=== PATIENT | male | born 1990 | race Caucasian/White ===

== ENCOUNTER 2016-11-29 15:25 | Inpatient (IN) | payer SELFPAY ==
[2016-11-29] MEDS ORDERED: Sodium Chloride 0.9% 1,000 ML PRIMARY IV ONE ×4 (16:01→18:56)
[2016-11-29] MEDS ORDERED: ONDANSETRON 4 MG/2 ML VIAL IVP ONE (16:01)
[2016-11-29] MEDS ORDERED: NORMAL SALINE 10 ML SYRINGE FLUSH IVP PRN ×2 (16:01→18:56)
[2016-11-29 16:20] LABS: BASOPHILS # (AUTO) 0.02 10*3/UL; BASOPHILS % (AUTO) 0.1 % (0-1); EOSINOPHILS % (AUTO) 0.4 % (0-8); HEMATOCRIT 52.1 % (42.0-52.0); HEMOGLOBIN 18.9 g/dL (14.0-18.0); IMM GRAN % (AUTO) 0.4 % (0-5); IMM GRAN# (AUTO) 0.06 10*3/UL; LYMPHOCYTES # (AUTO) 1.33 10*3/uL; MEAN CORPUSCULAR HGB CONC 36.3 g/dL (33-37); MEAN PLATELET VOLUME 10.1 FL (7.4-12.2); MONOCYTES # (AUTO) 0.65 10*3/UL (0.3-0.8); MONOCYTES % (AUTO) 3.9 % (5-15); NEUTROPHILS # (AUTO) 14.46 10*3/UL; NEUTROPHILS % (AUTO) 87.2 % (50-80); PLATELET MORPHOLOGY COMMENT NORMAL MORPHOLOGY (NORM); RDW COEFFICIENT OF VARIATION 13.4 % (11.5-14.5); WHITE BLOOD COUNT 16.59 10^3/uL (4.8-10.8)
[2016-11-29 16:29] LABS: AMYLASE 52 U/L (30-110); ASPARTATE AMINO TRANSFERASE 14 IU/L (21-57); BILIRUBIN,TOTAL 1.1 mg/dL (0.3-1.2); BLOOD UREA NITROGEN 10 mg/dL (7-22); BUN/CREATININE RATIO 11.11 (6-20); CALCIUM 10.5 mg/dL (8.7-10.7); CHLORIDE 107 meq/L (98-112); CREATININE 0.9 mg/dL (0.70-1.50); EST GLOMERULAR FILTRATION > 60 (>60 ml/min/1.73m(2)); GLUCOSE 89 mg/dL (78-110); POTASSIUM 3.9 meq/L (3.8-5.2); SODIUM 144 meq/L (135-145); TOTAL PROTEIN 7.8 g/dL (6.1-8.0)
[2016-11-29 16:43] LABS: BILIRUBIN,URINE NEGATIVE (NEG); CLARITY,URINE CLEAR (CLEAR); GLUCOSE, URINE (UA) NEGATIVE (NEG); LEUKOCYTE ESTERASE ,URINE NEGATIVE (NEG); NITRATE,URINE NEGATIVE (NEG); OCCULT BLOOD,URINE NEGATIVE (NEG); PH,URINE >=9.0 (5.0-8.5); PROTEIN,URINE NEGATIVE (NEG); UROBILINOGEN,URINE 0.2 EU/dL (0.2)
[2016-11-29 16:50] LABS: URINE SAMPLE TYPE CLEAN CATCH URINE
[2016-11-29] MEDS ORDERED: HYDROmorphone 2 MG/1 ML IVP ONE (17:08)
[2016-11-29] MEDS: ONDANSETRON 4 MG/2 ML VIAL IVP ONE ×2 (17:16→18:48)
--- NOTE | 2016-11-29 18:11 | DI ---
CT ABDOMEN SCAN WITH IV CONTRAST, 11/29/2016 4:02 PM : Clinical History: Abdominal pain. Previous Exam: None at this facility. Scans are performed from the lower lung bases through the liver and kidneys with IV contrast. 95 ml o f Isovue 300 was injected IV. The lung bases are clear. The liver is normal. The gallbladder is grossly normal. There is no abnorma lity of the spleen, pancreas, and adrenal glands. Both kidneys are normal in size, shape, position an d contour. There is no hydronephrosis or hydroureter. No renal or ureteral calculi are present. There are no abnormal retrocrural or periaortic nodes. No ascites is present. READING: Normal CT abdomen scan. CT PELVIS SCAN WITH IV CONTRAST, 11/29/2016 4:02 PM: Clinical History: See above. Previous Exam: None at this facility. Scans are performed from just superior to the umbilicus to the symphysis pubis with IV contrast. This is the same bolus of contrast used for the CT scans of the abdomen. Scans through the lower abdomen and pelvis show no masses or abnormal fluid collections. There is no adenopathy. The appendix is normal. The small bowel, terminal ileum, and ileocecal valve are normal. The colon is also normal. There are no hernias. READING: Normal CT scan of the pelvis.
[2016-11-29] MEDS ORDERED: ACETAMINOPHEN 325 MG TABLET PO PRN (18:56)
[2016-11-29] MEDS ORDERED: HYDROmorphone 2 MG/1 ML IVP PRN (18:56)
[2016-11-29] MEDS ORDERED: Prochlorperazine Edisylate Inj 10mg/2ml vial IVP ONE (19:10)
[2016-11-29] MEDS ORDERED: Influenza 16-17 Vaccine(4yrs+) 45 MCG/0.5 ML SYRINGE IM ONE (19:18)
[2016-11-29] MEDS ORDERED: Prochlorperazine Edisylate Inj 10mg/2ml vial ONE (19:31)
--- NOTE | 2016-11-29 19:58 | PDOC ---
History and Physical - History of Present Illness Date and Time of Service: 11/29/2016, Chief Complaint: Diarrhea and nausea and vomiting History of Present Illness: This very pleasant 26-year-old male with a prior history of some kidney problems that resolved in [place] that required "partial dialysis", and no other medical problems. He comes in stating that he had acute onset of nausea, vomiting, and diarrhea today. He was not able to hold anything down and even water caused him to throw up. He came in for evaluation and was found to have C. difficile colitis. The CT scan of the abdomen and pelvis was negative. The patient could not tolerate anything by mouth intake-palmer and continued to vomit even when I saw him on the floor. He was not a candidate to go home with his nausea and vomiting for outpatient therapy. The patient is never had anything like this happen before. He states that he was on antibiotics in August or so for a tooth abscess. He got the antibiotics here in the emergency room. Zofran helped initially but now the patient is vomiting even through that. Dilaudid did help with pain although he did like to avoid that. Past Medical History Medical History: 1. Prior history of kidney failure, resolved. This was attributed to higher than usual intake of Coca-[employer]a, and the patient admits to taking as much is a 24 pack per day. Surgical History: None Family History: Reviewed an Not Pertinent Pertinent Family History: Patient denies any major medical problems in the family other than "getting old". Past Social History: Smokes, drinks only occasionally once every couple months and socially at that. . 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 Has 2 children that are described as healthy. Tobacco Use: Current Every Day Smoker Substance Use Type: None Alcohol Use: Occasionally Medication / Allergies Home Medications: Home Medications Medication Instructions Recorded Confirmed Type NK [No Home Medications Reported] 11/29/16 11/29/16 History Allergies/Adverse Reactions: Allergies Allergy/AdvReac Type Severity Reaction Status Date / Time OPIOIDS AdvReac VOMITING Uncoded 11/29/16 19:14 Review of Systems - Review of Systems All Systems: Reviewed & No Additional Complaints Except as Stated (I did a 12 point review systems and other than that discussed in history present illness the entire review systems was negative. There are exceptions noted below.) - Constitutional Constitutional: REPORTS: Fever/Chills - Ear/Nose Exam Ear/Nose Exam: REPORTS: Other (Abscessed tooth in August, still has tooth, not cold, did not have resources to visit dentist.) Exam - Vitals Vital Signs: Vital Signs Height 5 ft 10 in Weight 182 lb 12.8 oz Vital Signs - Last Taken Temperature 97.6 F 11/29/16 15:25 Pulse Rate 83 11/29/16 15:25 Respiratory Rate 19 11/29/16 15:25 Blood Pressure 129/90 11/29/16 15:25 Pulse Ox 100 11/29/16 15:25 - General General Appearance: POSITIVE: No Acute Distress, Cooperative Additional General Exam Details: Ill but nontoxic. Vomiting on exam. - Head Head Exam: POSITIVE: Normal Inspection, Normocephalic, Atraumatic - Eye Eye Exam: POSITIVE: No Scleral Icterus - ENT ENT Exam: POSITIVE: Mucous Membranes Dry - Neck Neck Exam: POSITIVE: Normal Inspection - Respiratory Respiratory Exam: POSITIVE: Clear to Auscultation - Bilaterally, Breathing Non Labored, Normal to Percussion and Palpation - Cardiovascular Cardiovascular Exam: POSITIVE: RRR, No Murmur, No Clicks, No Gallops, No Rubs, No JVD - GI/Abdominal GI/Abdominal Exam: POSITIVE: Normal Bowel Sounds, Non Distended, Soft Additional GI/Abdominal Exam Details: Tender to palpation. - Rectal Rectal Exam: POSITIVE: Deferred - External Exam: POSITIVE: Deferred Exam: POSITIVE: Deferred - Extremities Extremities Exam: POSITIVE: No Clubbing Present, No Edema Present, No Cyanosis Present - Back Back Exam: POSITIVE: No CVA Tenderness - Neurological Neurological Exam: POSITIVE: Alert, Oriented x 3, No Facial Droop, Speech Intact / Clear, Moves All Extremities Equally - Psychiatric Psychiatric Exam: POSITIVE: Normal Affect, Normal Mood Results - Labs CBC and BMP: 11/29/16 16:17 11/29/16 16:17 Labs - Last 24 Hours: Laboratory Results 11/29/16 11/29/16 Range/Units 16:17 16:39 WBC 16.59 H (4.8-10.8) 10^3/uL RBC 6.30 H (4.70-6.10) 10^6/uL Hgb 18.9 H (14.0-18.0) g/dL Hct 52.1 H (42.0-52.0) % MCV 82.7 (80-90) FL MCH 30.0 (27-31) PG MCHC 36.3 (33-37) g/dL RDW Std Deviation 40.9 (39-50) fL RDW Coeff of Juanito 13.4 (11.5-14.5) % Plt Count 203 (140-350) 10*3/uL MPV 10.1 (7.4-12.2) FL Immature Gran % (Auto) 0.4 (0-5) % Neut % (Auto) 87.2 H (50-80) % Lymph % (Auto) 8.0 L (10-50) % [place] % (Auto) 3.9 L (5-15) % Eos % (Auto) 0.4 (0-8) % Baso % (Auto) 0.1 (0-1) % Immature Gran # (Auto) 0.06 10*3/UL Neut # (Auto) 14.46 10*3/UL Lymph # (Auto) 1.33 10*3/uL [place] # (Auto) 0.65 (0.3-0.8) 10*3/UL Eos # (Auto) 0.07 10*3/UL Baso # (Auto) 0.02 10*3/UL WBC Morphology Comment Normal morphology (NORM) Plt Morphology Comment Normal morphology (NORM) RBC Morph Comment Normal morphology (NORM) Sodium 144 (135-145) meq/L Potassium 3.9 (3.8-5.2) meq/L Chloride 107 (98-112) meq/L Carbon Dioxide 21 L (23-33) meq/L Anion Gap 16 (5-20) BUN 10 (7-22) mg/dL Creatinine 0.9 (0.70-1.50) mg/dL Estimated GFR > 60 (>60 ml/min/1.73m(2)) BUN/Creatinine Ratio 11.11 (6-20) Glucose 89 (78-110) mg/dL Calculated Osmolality 295.0 H (267-292) mOsm/kg Calcium 10.5 (8.7-10.7) mg/dL Total Bilirubin 1.1 (0.3-1.2) mg/dL AST 14 L (21-57) IU/L ALT 30 (21-72) IU/L Alkaline Phosphatase 127 H (38-126) IU/L Total Protein 7.8 (6.1-8.0) g/dL Albumin 5.1 H (3.5-4.8) g/dL Globulin 2.7 (2.50-4.10) g/dL Albumin/Globulin Ratio 1.80 (1.3-2.0) mg/g Amylase 52 (30-110) U/L Lipase 62 (23-300) IU/L Ur Collection Type Clean catch urine Urine Color Yellow Urine Clarity Clear (CLEAR) Urine pH >=9.0 (5.0-8.5) Ur Specific [place] 1.020 (1.005-1.030) Urine Protein Negative (NEG) mg/dl Urine Glucose (UA) Negative (NEG) mg/dL Urine Ketones Negative (NEG) Urine Occult Blood Negative (NEG) Urine Nitrate Negative (NEG) Urine Bilirubin Negative (NEG) Urine Urobilinogen 0.2 (0.2) EU/dL Ur Leukocyte Esterase Negative (NEG) Ur Culture Indicated? Culture not set - Imaging Status: Image Reviewed by Me (CT scan of the abdomen and pelvis was done and I viewed the images. The radiologist felt the study was negative.) Assessment and Plan - Patient Problems (1) C. difficile diarrhea Current Visit: Yes Status: Acute (2) Nausea and vomiting Current Visit: Yes Status: Acute Qualifiers: Vomiting type: unspecified Vomiting Intractability: intractable Qualified Description: Intractable vomiting with nausea, unspecified vomiting type Qualifier Code(s): (R11.2) Nausea with vomiting, unspecified (3) Tobacco abuse Current Visit: Yes Status: Acute - Assessment / Plan Additional Assessment/Plan Details: Admit the patient. IV fluids and Flagyl. The patient cannot tolerate by mouth Flagyl at this time, so we will have to given IV. C. difficile isolation. Cholestyramine to help bind toxin. Start with clear liquid diet and advance as tolerated. Check labs tomorrow Antiemetics and pain medications, given parenterally. The patient again cannot hold down by mouth medications at this time. Discussed the above plan with the patient and he agreed.
--- NOTE | 2016-11-29 20:07 | PDOC ---
Nausea/Vomiting/Diarrhea HPI - General Chief Complaint: Abdomen Pain Stated Complaint: N/V/D, ABD CRAMPING, FACE NUMBNESS SINCE 0700 Date Seen by Provider: 11/29/16 Time Seen by Provider: 15:55 Source: POSITIVE: Patient, Other () Exam Limitations: POSITIVE: No limitations Nurse's Notes Reviewed & Considered: Yes EMS Report Reviewed & Considered: Verbal - History of Present Illness Initial Comments: Patient is a 26 year old male. He states he's not felt well for a few days. Around 7 AM he developed vomiting and diarrhea. He states he's been having bloody diarrhea. He also has lower abdominal pain. No known fevers. He states he was nauseated and has had 3 or 4 episodes of vomiting. He states he' s had around 20 episodes of diarrhea and he states there is blood in his stool. He's not been on any recent antibiotic therapy except he was placed on some antibiotics for dental abscess one or 2 weeks ago. No known fevers or chills. Body Location Affected: REPORTS: Abdomen Timing: REPORTS: Abrupt, Getting Worse Duration: <24 hours Severity: Severe Quality: REPORTS: "Pain" (Lower abdomen) Abdominal Pain Onset Location: REPORTS: RLQ, LLQ Abdominal Pain Radiation: REPORTS: No radiation Context: REPORTS: Other (Antibiotic therapy for dental abscess in the recent past) Modifying Factors: improves with: Vomiting Associated Symptoms: REPORTS: Vomiting, Copious Diarrhea, Bloody Diarrhea Similar Symptoms Previously: No Recent Care Received: REPORTS: Recently Seen, Treated by MD (Treated for dental abscess with antibiotics 2 or 3 weeks ago) Any Prior Injuries Related to Current Complaint?: No - Patient Home Medications Home Medications: Home Medications NK [No Home Medications Reported] 11/29/16 - Patient Allergies Allergies/Adverse Reactions: Allergies Allergy/AdvReac Type Severity Reaction Status Date / Time OPIOIDS AdvReac VOMITING Uncoded 11/29/16 19:14 Past Medical History - heen HEENT History: Denies History Cardiovascular History: Denies History Respiratory History: Denies History Gastrointestinal History: Denies History Genitourinary History: Denies History Endocrine History: Denies History Musculoskeletal History: Denies History Prosthesis or Implant: No Neurological History: Denies History Blood Disorders: Denies History Psychiatric History: Depression, Anixety Disorders, PTSD History of Sexually Transmitted Diseases: No Male Reproductive History: Denies History Cancer History: Denies History In Past Year Been Physically Harmed or Verbally Threatened: No History of MDRO: No History of Other Communicable Diseases: No Tobacco Use: Current Every Day Smoker Alcohol Use: Occasionally Substance Use Type: None Previous Surgical History: No Significant Family History: No pertinent family hx Past Medical History Reviewed: Reviewed - No Changes ROS - Limitations ROS Limitations: No Limitations Constitution: REPORTS: Weakness, Recent Illness (As above) Cardiovascular: REPORTS: Denies Cardiac Symptoms Respiratory: REPORTS: Denies Resp Symptoms Neurological: REPORTS: Denies Neuro Symptoms Gastrointestinal: REPORTS: Abdominal Pain, Nausea, Vomitting, Diarrhea, Bloody Stools Endocrine: REPORTS: Denies Symptoms Musculoskeletal: REPORTS: Denies MS Symptoms Genitourinary: REPORTS: Denies Symptoms Eyes: REPORTS: Denies Symptoms ENT: REPORTS: Denies Symptoms Skin: REPORTS: Denies Skin Symptoms Lympathic: REPORTS: Denies Lympathic Symptoms Immunologic: POSITIVE: Denies Symptoms Psychiatric: POSITIVE: Denies Psych Symptoms Nausea/Vomiting/Diarrhea Exam - General Appearance General Appearance: POSITIVE: Alert, Cooperative, No Acute Distress, No Evidence of Trauma, Anxious, Other (Ill appearing) - HEENT HEENT: POSITIVE: Head Inspection Nml, Eyes Inspection Nml, Ears Inspection Nml, Nose Inspection Nml, Oral/Dental Inspect. Nml, Pharynx Inspect. Nml, PERRL, EOMI - Neck Neck: POSITIVE: Supple, Normal Inspection, Non Tender - Respiratory Respiratory: POSITIVE: No Respiratory Distress, Breath Sounds Normal, Chest Non- Tender - Cardiovascular Cardiovascular: POSITIVE: Regular Rate and Rhythm, Heart Sounds Normal, Equal Pulses, Strong Pulses Peripheral Pulses: Radial (R): 2+, Radial (L): 2+ - Chest Chest: POSITIVE: Non Tender - Abdomen Abdomen: Soft: (All Quadrants), Normal Bowel Sounds: (All Quadrants), Denies Tenderness: (LUQ), (RUQ), No Splenomegaly: (All Quadrants), No Hepatomegaly: ( All Quadrants), No Guarding: (All Quadrants), No Rebound: (All Quadrants), No Palpable Pulse: (All Quadrants), No Palpabale Mass: (All Quadrants), No Distention: (All Quadrants), No Rigidity: (All Quadrants), Tenderness Noted: ( RLQ), (LLQ) - Back Back: POSITIVE: Normal Inspection - Skin Skin: POSITIVE: Intact, Normal For Race, Warm, Dry, No Rash - Extremities Extremity: Non-Tender: (All Extremities), Normal ROM: (All Extremities), Normal Inspection: (All Extremities) - Neurological / Psychological Neurological: POSITIVE: Oriented X3, tipple greaser Normal As Tested, Motor Normal, Sensation Normal, 5, 6 Images - Complete Complete: 1 - Discomfort on palpation N/V/D Progress - Results Reviewed by me Xrays/CTs/US Reviewed by me: Yes Discussed with Radiologist: Yes Radiology Findings: CT scan with IV contrast read as normal by radiologist Lab Results Reviewed: Yes (positive for C. difficile; white blood cell count 16, 500) Lab Results:: Laboratory Results 11/29/16 11/29/16 Range/Units 16:17 16:39 WBC 16.59 H (4.8-10.8) 10^3/uL RBC 6.30 H (4.70-6.10) 10^6/uL Hgb 18.9 H (14.0-18.0) g/dL Hct 52.1 H (42.0-52.0) % MCV 82.7 (80-90) FL MCH 30.0 (27-31) PG MCHC 36.3 (33-37) g/dL RDW Std Deviation 40.9 (39-50) fL RDW Coeff of Juanito 13.4 (11.5-14.5) % Plt Count 203 (140-350) 10*3/uL MPV 10.1 (7.4-12.2) FL Immature Gran % (Auto) 0.4 (0-5) % Neut % (Auto) 87.2 H (50-80) % Lymph % (Auto) 8.0 L (10-50) % [place] % (Auto) 3.9 L (5-15) % Eos % (Auto) 0.4 (0-8) % Baso % (Auto) 0.1 (0-1) % Immature Gran # (Auto) 0.06 10*3/UL Neut # (Auto) 14.46 10*3/UL Lymph # (Auto) 1.33 10*3/uL [place] # (Auto) 0.65 (0.3-0.8) 10*3/UL Eos # (Auto) 0.07 10*3/UL Baso # (Auto) 0.02 10*3/UL WBC Morphology Comment Normal morphology (NORM) Plt Morphology Comment Normal morphology (NORM) RBC Morph Comment Normal morphology (NORM) Sodium 144 (135-145) meq/L Potassium 3.9 (3.8-5.2) meq/L Chloride 107 (98-112) meq/L Carbon Dioxide 21 L (23-33) meq/L Anion Gap 16 (5-20) BUN 10 (7-22) mg/dL Creatinine 0.9 (0.70-1.50) mg/dL Estimated GFR > 60 (>60 ml/min/1.73m(2)) BUN/Creatinine Ratio 11.11 (6-20) Glucose 89 (78-110) mg/dL Calculated Osmolality 295.0 H (267-292) mOsm/kg Calcium 10.5 (8.7-10.7) mg/dL Total Bilirubin 1.1 (0.3-1.2) mg/dL AST 14 L (21-57) IU/L ALT 30 (21-72) IU/L Alkaline Phosphatase 127 H (38-126) IU/L Total Protein 7.8 (6.1-8.0) g/dL Albumin 5.1 H (3.5-4.8) g/dL Globulin 2.7 (2.50-4.10) g/dL Albumin/Globulin Ratio 1.80 (1.3-2.0) mg/g Amylase 52 (30-110) U/L Lipase 62 (23-300) IU/L Ur Collection Type Clean catch urine Urine Color Yellow Urine Clarity Clear (CLEAR) Urine pH >=9.0 (5.0-8.5) Ur Specific [place] 1.020 (1.005-1.030) Urine Protein Negative (NEG) mg/dl Urine Glucose (UA) Negative (NEG) mg/dL Urine Ketones Negative (NEG) Urine Occult Blood Negative (NEG) Urine Nitrate Negative (NEG) Urine Bilirubin Negative (NEG) Urine Urobilinogen 0.2 (0.2) EU/dL Ur Leukocyte Esterase Negative (NEG) Ur Culture Indicated? Culture not set - Patient's Progress Pain Medication Addressed: POSITIVE: Yes (Patient given Dilaudid 2 mg IV with some relief of lower abdominal pain) School/Work Release Addressed: POSITIVE: Not Applicable Re-examine Time: 18:25 Re-Examine Comment: Patient has had several bowel movements in the emergency room and one episode of vomiting. Diagnosis of C. difficile enteritis discussed with patient. Patient feels some better after rehydration with 2 L of normal saline and Dilaudid IV and Zofran IV be still quite uncomfortable. He is hemoconcentrated. Decision made to admit the patient for further evaluation and treatment. Status: POSITIVE: Improved, Re-Examined - Consult Consult (If Yes, Name of Consulting MD & Time Called): Yes (Dr. Elena, hospitalist, [id number]) Consulting MD will see pt:: POSITIVE: [facility] Admit Counseled: POSITIVE: Patient, Family, RE: Lab Results, RE: Radiology Results, RE : DX, RE: Need for F/U Patient Care Time - Estimated PCT Patient Care Time (In Minutes): 50 Vital Signs - Recent Vital Signs Vital Signs: Vital Signs (Last 8 hours) Temp Pulse Resp BP Pulse Ox 11/29/16 15:25 97.6 F 83 19 129/90 100 - VS Reviewed Vital Signs Reviewed: Yes Discharge Clinical Impression: C. difficile diarrhea Discharge Disposition: Admit to Inpatient Condition: Stable Date Decision to Admit to Inpatient: 11/29/16 Time Decision to Admit to Inpatient: 18:15
[2016-11-29] MEDS: metroNIDAZOLE 500mg (Premix) 500 MG in Premix 1 BAG IV SCH (20:48)
[2016-11-29] MEDS ORDERED: NICOTINE 21 MG /DAY PATCH TRANSDERM PRN (21:15)
[2016-11-29] MEDS ORDERED: Prochlorperazine Edisylate Inj 10mg/2ml vial IVP PRN (21:22)
[2016-11-30] MEDS: metroNIDAZOLE 500mg (Premix) 500 MG in Premix 1 BAG IV SCH (04:57)
[2016-11-30 08:57] LABS: BASOPHILS # (AUTO) 0.01 10*3/UL; BASOPHILS % (AUTO) 0.1 % (0-1); EOSINOPHILS % (AUTO) 1.3 % (0-8); HEMOGLOBIN 14.9 g/dL (14.0-18.0); IMM GRAN % (AUTO) 0.1 % (0-5); IMM GRAN# (AUTO) 0.01 10*3/UL; LYMPHOCYTES # (AUTO) 1.89 10*3/uL; LYMPHOCYTES % (AUTO) 28.1 % (10-50); MEAN CORPUSCULAR HEMOGLOBIN 29.7 PG (27-31); MEAN CORPUSCULAR HGB CONC 34.7 g/dL (33-37); MEAN PLATELET VOLUME 10.6 FL (7.4-12.2); MONOCYTES # (AUTO) 0.61 10*3/UL (0.3-0.8); MONOCYTES % (AUTO) 9.1 % (5-15); NEUTROPHILS # (AUTO) 4.11 10*3/UL; NEUTROPHILS % (AUTO) 61.3 % (50-80); RDW COEFFICIENT OF VARIATION 13.3 % (11.5-14.5); RED BLOOD COUNT 5.01 10^6/uL (4.70-6.10); WHITE BLOOD COUNT 6.72 10^3/uL (4.8-10.8)
[2016-11-30 08:59] LABS: PLATELET MORPHOLOGY COMMENT NORMAL MORPHOLOGY (NORM)
[2016-11-30] MEDS ORDERED: Patch Removal PATCH TRANSDERM SCH (09:00)
[2016-11-30 09:02] LABS: BLOOD UREA NITROGEN 5 mg/dL (7-22); CALCIUM 8.4 mg/dL (8.7-10.7); CHLORIDE 107 meq/L (98-112); EST GLOMERULAR FILTRATION > 60 (>60 ml/min/1.73m(2)); GLUCOSE 88 mg/dL (78-110); MAGNESIUM 1.7 mg/dL (1.6-2.4); POTASSIUM 4.2 meq/L (3.8-5.2); SODIUM 138 meq/L (135-145)
[2016-11-30] MEDS ORDERED: Magnesium Sulfate 2gm (Premix) 2 GM in Premix 1 BAG IV ONE (10:26)
--- NOTE | 2016-11-30 10:26 | PDOC(PROG) ---
Date and Time of Service: 11/30/2016, 1026 Interval History: Overall, feels better. Less nausea and vomiting. Diarrhea has improved. He was able to rest with both Compazine and Flagyl last night and that helped him feel better. Objective : Data - Labs CBC and BMP: 11/30/16 08:45 11/30/16 08:45 Labs - Last 24 Hours: Laboratory Results 11/30/16 Range/Units 08:45 WBC 6.72 (4.8-10.8) 10^3/uL RBC 5.01 (4.70-6.10) 10^6/uL Hgb 14.9 (14.0-18.0) g/dL Hct 43.0 (42.0-52.0) % MCV 85.8 (80-90) FL MCH 29.7 (27-31) PG MCHC 34.7 (33-37) g/dL RDW Std Deviation 41.2 (39-50) fL RDW Coeff of Juanito 13.3 (11.5-14.5) % Plt Count 151 (140-350) 10*3/uL MPV 10.6 (7.4-12.2) FL Immature Gran % (Auto) 0.1 (0-5) % Neut % (Auto) 61.3 (50-80) % Lymph % (Auto) 28.1 (10-50) % [place] % (Auto) 9.1 (5-15) % Eos % (Auto) 1.3 (0-8) % Baso % (Auto) 0.1 (0-1) % Immature Gran # (Auto) 0.01 10*3/UL Neut # (Auto) 4.11 10*3/UL Lymph # (Auto) 1.89 10*3/uL [place] # (Auto) 0.61 (0.3-0.8) 10*3/UL Eos # (Auto) 0.09 10*3/UL Baso # (Auto) 0.01 10*3/UL WBC Morphology Comment Normal morphology (NORM) Plt Morphology Comment Normal morphology (NORM) RBC Morph Comment Normal morphology (NORM) Sodium 138 (135-145) meq/L Potassium 4.2 (3.8-5.2) meq/L Chloride 107 (98-112) meq/L Carbon Dioxide 25 (23-33) meq/L Anion Gap 6 (5-20) BUN 5 L (7-22) mg/dL Creatinine 1.0 (0.70-1.50) mg/dL Estimated GFR > 60 (>60 ml/min/1.73m(2)) BUN/Creatinine Ratio 5.00 L (6-20) Glucose 88 (78-110) mg/dL Calculated Osmolality 281.0 (267-292) mOsm/kg Calcium 8.4 L (8.7-10.7) mg/dL Magnesium 1.7 (1.6-2.4) mg/dL Objective : Exam - General General Appearance: No Acute Distress, Cooperative Additional General Exam Details: Vital Signs - Last Taken Temperature 98.0 F 11/30/16 08:28 Pulse Rate 67 11/30/16 08:28 Respiratory Rate 18 11/30/16 08:28 Blood Pressure 122/73 11/30/16 08:28 Pulse Ox 96 11/30/16 08:28 On room air oxygen - Eye Eye Exam: No Scleral Icterus - Respiratory Respiratory Exam: Clear to Auscultation - Bilaterally, Breathing Non Labored - Cardiovascular Cardiovascular Exam: RRR, No Murmur, No Clicks, No Gallops, No Rubs, No JVD - GI/Abdominal GI/Abdominal Exam: Normal Bowel Sounds, Non Tender, Non Distended, Soft - Extremities Extremities Exam: No Clubbing Present, No Edema Present, No Cyanosis Present - Neurological Neurological Exam: Alert, Oriented x 3, No Facial Droop, Speech Intact / Clear, Moves All Extremities Equally Assessment and Plan - Patient Problems (1) C. difficile diarrhea Current Visit: Yes Status: Acute Comment: On Flagyl, day 2 today. (2) Nausea and vomiting Current Visit: Yes Status: Acute Qualifiers: Vomiting type: unspecified Vomiting Intractability: intractable Qualified Description: Intractable vomiting with nausea, unspecified vomiting type Qualifier Code(s): (R11.2) Nausea with vomiting, unspecified (3) Tobacco abuse Current Visit: Yes Status: Acute - Assessment / Plan Additional Assessment/Plan Details: Switch Flagyl from IV to by mouth. And advance diet. If both of these can be tolerated overnight, probable discharge tomorrow. Will need a 14 day course of Flagyl therapy for this. Try to avoid antibiotics if possible in the future. I will also give some magnesium today as his magnesium was a little on the low side.
[2016-11-30 14:09] VITALS: RESP 22; TEMP 97.4
--- NOTE | 2016-11-30 14:54 | DCSUMMARY ---
Hospitalization Summary Admit Date: 11/29/16 Discharge Date: 11/30/16 Primary Diagnosis:: C. difficile diarrhea Hospital Course: This very pleasant 26-year-old male that was on antibiotics in August for a tooth abscess. He came in yesterday complaining of severe nausea and vomiting and diarrhea. His stool was tested and he was found to have Clostridium difficile in the stool. He was placed on Flagyl IV, was vomiting on admission, and placed on IV fluids as well. I expected, based on his symptoms and severity of them on presentation that he would be here for a couple of days if not longer. However, the patient made an incredibly fast recovery and was able to tolerate by mouth Flagyl today, was able to tolerate a regular diet, and he really would like to go home. He stated people that he would go no matter what. I don't think an AGAINST MEDICAL ADVICE discharge is indicated here, and so we will go ahead and discharge him on Flagyl and home antiemetics as needed. I've given him a prescription for 13 days for total of 14 days of coverage. We advised patient to quit smoking. Today, no complaints of nausea, no vomiting, patient is having some diarrhea but it is significantly decreased in terms of number of movements today. Assessment and Plan: 1. As per discharge assessments noted 2. Disposition: Patient is discharged home. 3. Condition on discharge, stable and improved. 4. Diet: regular diet 5. Activities: resume normal activities/good handwashing at home and we talked about this during the hospital stay. 6. Follow-Up: 1. Primary provider if symptoms persist. 2. 7. Medications at the Time of Discharge: Home Medications Medication Instructions Recorded Confirmed Type Prochlorperazine Maleate 5 mg PO Q6H PRN #10 tablet 11/30/16 Rx [Compazine] metroNIDAZOLE Tab [Flagyl Tab] 500 mg PO Q8H #41 tab 11/30/16 Rx 8. Time, care, counseling and coordination of care for this discharge is less than 30 minutes. Exam - Vitals Vital Signs: Vital Signs Temperature 97.4 F Temperature Source Temporal Artery Scan Pulse Rate [Pulse Oximeter] 85 Pulse Rate 97 Respiratory Rate 22 Blood Pressure [Left Arm] 139/90 Blood Pressure 131/96 Pulse Ox 98 Oxygen Delivery Method Room Air Height 5 ft 10 in Weight 184 lb 6.4 oz - General General Appearance: POSITIVE: No Acute Distress, Cooperative - Eye Eye Exam: POSITIVE: No Scleral Icterus - Respiratory Respiratory Exam: POSITIVE: Clear to Auscultation - Bilaterally, Breathing Non Labored - Cardiovascular Cardiovascular Exam: POSITIVE: RRR, No Murmur, No Clicks, No Gallops, No Rubs, No JVD - GI/Abdominal GI/Abdominal Exam: POSITIVE: Normal Bowel Sounds, Non Tender, Non Distended, Soft - Extremities Extremities Exam: POSITIVE: No Clubbing Present, No Edema Present, No Cyanosis Present - Neurological Neurological Exam: POSITIVE: Alert, Oriented x 3, No Facial Droop, Speech Intact / Clear, Moves All Extremities Equally Data Perinent Studies: Laboratory Results 11/29/16 11/29/16 11/30/16 Range/Units 16:17 16:39 08:45 WBC 16.59 H 6.72 (4.8-10.8) 10^3/uL RBC 6.30 H 5.01 (4.70-6.10) 10^6/uL Hgb 18.9 H 14.9 (14.0-18.0) g/dL Hct 52.1 H 43.0 (42.0-52.0) % MCV 82.7 85.8 (80-90) FL MCH 30.0 29.7 (27-31) PG MCHC 36.3 34.7 (33-37) g/dL RDW Std Deviation 40.9 41.2 (39-50) fL RDW Coeff of Juanito 13.4 13.3 (11.5-14.5) % Plt Count 203 151 (140-350) 10*3/uL MPV 10.1 10.6 (7.4-12.2) FL Immature Gran % (Auto) 0.4 0.1 (0-5) % Neut % (Auto) 87.2 H 61.3 (50-80) % Lymph % (Auto) 8.0 L 28.1 (10-50) % [place] % (Auto) 3.9 L 9.1 (5-15) % Eos % (Auto) 0.4 1.3 (0-8) % Baso % (Auto) 0.1 0.1 (0-1) % Immature Gran # (Auto) 0.06 0.01 10*3/UL Neut # (Auto) 14.46 4.11 10*3/UL Lymph # (Auto) 1.33 1.89 10*3/uL [place] # (Auto) 0.65 0.61 (0.3-0.8) 10*3/UL Eos # (Auto) 0.07 0.09 10*3/UL Baso # (Auto) 0.02 0.01 10*3/UL WBC Morphology Comment Normal morphology Normal morphology (NORM) Plt Morphology Comment Normal morphology Normal morphology (NORM) RBC Morph Comment Normal morphology Normal morphology (NORM) Sodium 144 138 (135-145) meq/L Potassium 3.9 4.2 (3.8-5.2) meq/L Chloride 107 107 (98-112) meq/L Carbon Dioxide 21 L 25 (23-33) meq/L Anion Gap 16 6 (5-20) BUN 10 5 L (7-22) mg/dL Creatinine 0.9 1.0 (0.70-1.50) mg/dL Estimated GFR > 60 > 60 (>60 ml/min/1.73m(2)) BUN/Creatinine Ratio 11.11 5.00 L (6-20) Glucose 89 88 (78-110) mg/dL Calculated Osmolality 295.0 H 281.0 (267-292) mOsm/kg Calcium 10.5 8.4 L (8.7-10.7) mg/dL Magnesium 1.7 (1.6-2.4) mg/dL Total Bilirubin 1.1 (0.3-1.2) mg/dL AST 14 L (21-57) IU/L ALT 30 (21-72) IU/L Alkaline Phosphatase 127 H (38-126) IU/L Total Protein 7.8 (6.1-8.0) g/dL Albumin 5.1 H (3.5-4.8) g/dL Globulin 2.7 (2.50-4.10) g/dL Albumin/Globulin Ratio 1.80 (1.3-2.0) mg/g Amylase 52 (30-110) U/L Lipase 62 (23-300) IU/L Ur Collection Type Clean catch urine Urine Color Yellow Urine Clarity Clear (CLEAR) Urine pH >=9.0 (5.0-8.5) Ur Specific [place] 1.020 (1.005-1.030) Urine Protein Negative (NEG) mg/dl Urine Glucose (UA) Negative (NEG) mg/dL Urine Ketones Negative (NEG) Urine Occult Blood Negative (NEG) Urine Nitrate Negative (NEG) Urine Bilirubin Negative (NEG) Urine Urobilinogen 0.2 (0.2) EU/dL Ur Leukocyte Esterase Negative (NEG) Ur Culture Indicated? Culture not set Patient Problems - Patient Problem List (1) C. difficile diarrhea Current Visit: Yes Status: Acute (2) Nausea and vomiting Current Visit: Yes Status: Acute Qualifiers: Vomiting type: unspecified Vomiting Intractability: intractable Qualified Description: Intractable vomiting with nausea, unspecified vomiting type Qualifier Code(s): (R11.2) Nausea with vomiting, unspecified (3) Tobacco abuse Current Visit: Yes Status: Acute
[2016-11-30] MEDS ORDERED: metroNIDAZOLE Tab 500 MG TAB PO SCH (15:00)
[2016-11-30] MEDS ORDERED: Influenza 16-17 Vaccine(4yrs+) 45 MCG/0.5 ML SYRINGE IM ONE (15:01)
== END 2016-11-30 15:20 | disposition home or self-care (01) | DRG 373 ==
LOC: ER 15:25 → MED/SURG 18:30
PROVIDERS: ADMIT Family Medicine; ATTEND Family Medicine
DX: A04.7 Enterocolitis due to Clostridium difficile (principal); R11.2 Nausea with vomiting, unspecified; Z72.0 Tobacco use
CPT/HCPCS: 36415; 74177; 80048; 80053; 81003; 82150; 83690; 83735; 85025; 87046; 87205; 87328; 87329; 87493; 90673; 96361; 96374; 96375; 96376; 99285; J0780; J1170; J2405; J3475; J3490; J7030

== ENCOUNTER 2017-04-01 21:07 | Emergency (ER) | payer SELFPAY ==
[2017-04-01 21:13] VITALS: RESP 18; TEMP 97.1
[2017-04-01] MEDS ORDERED: ONDANSETRON 4 MG/2 ML VIAL IVP ONE (21:26)
[2017-04-01] MEDS ORDERED: NORMAL SALINE 10 ML SYRINGE FLUSH IVP PRN (21:26)
[2017-04-01] MEDS ORDERED: Sodium Chloride 0.9% 1,000 ML PRIMARY IV ONE (21:26)
[2017-04-01 21:49] LABS: BASOPHILS # (AUTO) 0.05 10*3/UL; BASOPHILS % (AUTO) 0.5 % (0-1); EOSINOPHILS # (AUTO) 0.05 10*3/UL; EOSINOPHILS % (AUTO) 0.5 % (0-8); HEMATOCRIT 46.6 % (42.0-52.0); HEMOGLOBIN 16.8 g/dL (14.0-18.0); LYMPHOCYTES # (AUTO) 2.77 10*3/uL; MEAN CORPUSCULAR HEMOGLOBIN 30.7 PG (27-31); MEAN CORPUSCULAR HGB CONC 36.1 g/dL (33-37); MEAN CORPUSCULAR VOLUME 85.2 FL (80-90); MEAN PLATELET VOLUME 9.9 FL (7.4-12.2); MONOCYTES # (AUTO) 0.77 10*3/UL (0.3-0.8); MONOCYTES % (AUTO) 6.9 % (5-15); NEUTROPHILS # (AUTO) 7.45 10*3/UL; PLATELET MORPHOLOGY COMMENT NORMAL MORPHOLOGY (NORM); RBC MORPHOLOGY COMMENT NORMAL MORPHOLOGY (NORM); RED BLOOD COUNT 5.47 10^6/uL (4.70-6.10); WBC MORPHOLOGY COMMENT NORMAL MORPHOLOGY (NORM)
[2017-04-01 22:05] LABS: BLOOD UREA NITROGEN 12 mg/dL (7-22); C-REACTIVE PROTEIN 0.5 mg/dL (0.0-0.9); CALCIUM 10.1 mg/dL (8.7-10.7); EST GLOMERULAR FILTRATION > 60 (>60 ml/min/1.73m(2)); LIPASE 64 IU/L (23-300); SERUM ALBUMIN 4.6 g/dL (3.5-4.8)
--- NOTE | 2017-04-01 23:12 | DI ---
HISTORY: Generalized abdominal pain. TECHNIQUE: Contiguous axial images of the abdomen and pelvis were obtained and submitted for interpr etation. FINDINGS: Normal CT appearance of the liver, gallbladder, pancreas, spleen, kidneys, and adrenal gla nds. Ureters and bladder are unremarkable. No radiopaque renal or collecting system calculi. No tr dence of obstructive uropathy. Hollow viscus organs demonstrate normal course and caliber, although the colon is decompressed and no t optimally evaluated. The appendix is within normal limits. There is no intraperitoneal free air or fluid. Vascular structures are intact. No abdominopelvic lymphadenopathy is present. There is no inguinal or umbilical hernia. The lung bases are clear. Osseous structures are within normal limits for age. IMPRESSION: 1. No CT evidence of acute intra-abdominal or pelvic pathology.
[2017-04-01] MEDS ORDERED: Ondansetron ODT Tab 4 MG TAB PO SCH (23:30)
--- NOTE | 2017-04-02 01:49 | PDOC ---
Nausea/Vomiting/Diarrhea HPI - General Chief Complaint: Nausea / Vomiting / Diarrhea Stated Complaint: "FEELS LIKE C-DIFF IS COMING BACK" Date Seen by Provider: 04/01/17 Time Seen by Provider: 21:15 Source: POSITIVE: Patient Exam Limitations: POSITIVE: No limitations Nurse's Notes Reviewed & Considered: Yes - History of Present Illness Initial Comments: The patient is a 27-year-old male. He states that since this morning he's had some nausea and has reportedly had a a few episodes of vomiting. He also complains of some poorly localized lower abdominal discomfort. Patient states that 3 months ago he is diagnosed with Clostridium difficile enteritis and was treated with Flagyl. He is concerned that he might be having a recurrence of this problem. He has not been on any antibiotics recently. No diarrhea. No melena, hematochezia, hematemesis, dysuria, hematuria or fevers. No history of previous abdominal surgery. Body Location Affected: REPORTS: Abdomen Timing: REPORTS: Abrupt, Improved Duration: <24 hours Severity: Moderate Quality: REPORTS: Cramping, "Pain" (Paraumbilical area) Abdominal Pain Onset Location: REPORTS: Periumbilical Abdominal Pain Radiation: REPORTS: No radiation Context: DENIES: None, Activity, Bending, Coughing, Fall, Lifting, Near Fall, Rest, Sitting, Sleep, Standing, Turning, Emotional stress, Camping, Bad Food, Out of Country Travel, Other, Recent Surgery, Recent Trauma Modifying Factors: improves with: Vomiting Associated Symptoms: REPORTS: Vomiting, Abdominal Pain, Cramping Similar Symptoms Previously: Yes (C. difficile 3 months ago started similarly) Recent Care Received: REPORTS: Recently Seen, Treated by MD, Hospitalized (For Clostridium difficile as above 3 months ago) Any Prior Injuries Related to Current Complaint?: No - Patient Home Medications Home Medications: Home Medications NK [No Home Medications Reported] 04/01/17 - Patient Allergies Allergies/Adverse Reactions: Allergies Allergy/AdvReac Type Severity Reaction Status Date / Time OPIOIDS AdvReac VOMITING Uncoded 04/01/17 22:11 Past Medical History - hek[place] HEENT History: Denies History Cardiovascular History: Denies History Respiratory History: Denies History Gastrointestinal History: Denies History Genitourinary History: Denies History Endocrine History: Denies History Musculoskeletal History: Denies History Prosthesis or Implant: No Neurological History: Denies History Blood Disorders: Denies History Psychiatric History: Depression, Anxiety Disorders, PTSD History of Sexually Transmitted Diseases: No Male Reproductive History: Denies History Cancer History: Denies History In Past Year Been Physically Harmed or Verbally Threatened: No History of MDRO: Yes Type of MDRO: C-Diff History of Other Communicable Diseases: No Tobacco Use: Current Every Day Smoker Alcohol Use: Rarely Substance Use Type: None Previous Surgical History: No Significant Family History: No pertinent family hx Past Medical History Reviewed: Reviewed - No Changes ROS - Limitations ROS Limitations: No Limitations Constitution: REPORTS: Denies Symptoms Cardiovascular: REPORTS: Denies Cardiac Symptoms Respiratory: REPORTS: Denies Resp Symptoms Neurological: REPORTS: Denies Neuro Symptoms Gastrointestinal: REPORTS: Abdominal Pain, Nausea, Vomitting Endocrine: REPORTS: Denies Symptoms Musculoskeletal: REPORTS: Denies MS Symptoms Genitourinary: REPORTS: Denies Symptoms Eyes: REPORTS: Denies Symptoms ENT: REPORTS: Denies Symptoms Skin: REPORTS: Denies Skin Symptoms Lympathic: REPORTS: Denies Lympathic Symptoms Immunologic: POSITIVE: Denies Symptoms Psychiatric: POSITIVE: Denies Psych Symptoms Nausea/Vomiting/Diarrhea Exam - General Appearance General Appearance: POSITIVE: Alert, Cooperative, No Acute Distress, No Evidence of Trauma - HEENT HEENT: POSITIVE: Head Inspection Nml, Eyes Inspection Nml, Ears Inspection Nml, Nose Inspection Nml, Oral/Dental Inspect. Nml, Pharynx Inspect. Nml, PERRL, EOMI - Neck Neck: POSITIVE: Supple, Normal Inspection, Non Tender - Respiratory Respiratory: POSITIVE: No Respiratory Distress, Breath Sounds Normal, Chest Non- Tender - Cardiovascular Cardiovascular: POSITIVE: Regular Rate and Rhythm, Heart Sounds Normal, Equal Pulses, Strong Pulses Peripheral Pulses: Radial (R): 2+, Radial (L): 2+ - Chest Chest: POSITIVE: Non Tender - Abdomen Abdomen: Soft: (All Quadrants), Normal Bowel Sounds: (All Quadrants), Denies Tenderness: (RUQ), (LUQ), No Splenomegaly: (All Quadrants), No Hepatomegaly: ( All Quadrants), No Guarding: (All Quadrants), No Rebound: (All Quadrants), No Palpable Pulse: (All Quadrants), No Palpabale Mass: (All Quadrants), No Distention: (All Quadrants), No Rigidity: (All Quadrants), Tenderness Noted: ( RLQ), (LLQ) Additional Abdominal Details: Abdominal examination shows bowel sounds to be active. Patient does have some discomfort on direct palpation over the paraumbilical area and both lower quadrants. No masses, organomegaly or rebound. 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 Lab Results Reviewed: Yes Lab Results:: Laboratory Results 04/01/17 Range/Units 21:40 WBC 11.10 H (4.8-10.8) 10^3/uL RBC 5.47 (4.70-6.10) 10^6/uL Hgb 16.8 (14.0-18.0) g/dL Hct 46.6 (42.0-52.0) % MCV 85.2 (80-90) FL MCH 30.7 (27-31) PG MCHC 36.1 (33-37) g/dL RDW Std Deviation 39.8 (39-50) fL RDW Coeff of Juanito 12.8 (11.5-14.5) % Plt Count 201 (140-350) 10*3/uL MPV 9.9 (7.4-12.2) FL Immature Gran % (Auto) 0.1 (0-5) % Neut % (Auto) 67.0 (50-80) % Lymph % (Auto) 25.0 (10-50) % [place] % (Auto) 6.9 (5-15) % Eos % (Auto) 0.5 (0-8) % Baso % (Auto) 0.5 (0-1) % Immature Gran # (Auto) 0.01 10*3/UL Neut # (Auto) 7.45 10*3/UL Lymph # (Auto) 2.77 10*3/uL [place] # (Auto) 0.77 (0.3-0.8) 10*3/UL Eos # (Auto) 0.05 10*3/UL Baso # (Auto) 0.05 10*3/UL WBC Morphology Comment Normal morphology (NORM) Plt Morphology Comment Normal morphology (NORM) RBC Morph Comment Normal morphology (NORM) Sodium 144 (135-145) meq/L Potassium 3.8 (3.8-5.2) meq/L Chloride 105 (98-112) meq/L Carbon Dioxide 28 (23-33) meq/L Anion Gap 11 (5-20) BUN 12 (7-22) mg/dL Creatinine 0.8 (0.70-1.50) mg/dL Estimated GFR > 60 (>60 ml/min/1.73m(2)) BUN/Creatinine Ratio 15.00 (6-20) Glucose 96 (78-110) mg/dL Calculated Osmolality 297.0 H (267-292) mOsm/kg Calcium 10.1 (8.7-10.7) mg/dL Total Bilirubin 0.9 (0.3-1.2) mg/dL AST 19 L (21-57) IU/L ALT 22 (21-72) IU/L Alkaline Phosphatase 96 (38-126) IU/L C-Reactive Protein 0.5 (0.0-0.9) mg/dL Total Protein 7.3 (6.1-8.0) g/dL Albumin 4.6 (3.5-4.8) g/dL Globulin 2.6 (2.50-4.10) g/dL Albumin/Globulin Ratio 1.70 (1.3-2.0) mg/g Amylase 67 (30-110) U/L Lipase 64 (23-300) IU/L - Patient's Progress Pain Medication Addressed: POSITIVE: Not Applicable School/Work Release Addressed: POSITIVE: Yes (No work for 24 hours) Re-examine Time: 23:25 Re-Examine Comment: Patient hydrated with a liter of normal saline and given Zofran IV. Patient states he feels much better on discharge. He's not had any bowel movements. Patient discharged was stool specimen containers and he is to bring in stool specimens for Clostridium difficile testing when available. Discussed good handwashing techniques. Status: POSITIVE: Improved, Re-Examined - Consult Counseled: POSITIVE: Patient, RE: Lab Results, RE: Radiology Results, RE: DX, RE : Need for F/U Patient Care Time - Estimated PCT Patient Care Time (In Minutes): 45 Vital Signs - Recent Vital Signs Vital Signs: Vital Signs (Last 8 hours) Temp Pulse Resp BP Pulse Ox 04/01/17 21:07 97.1 F 82 18 148/101 97 - VS Reviewed Vital Signs Reviewed: Yes Discharge Clinical Impression: Gastroenteritis Discharge Disposition: Discharged to Home Condition: Stable Patient Instructions Given at Discharge: Acute Nausea and Vomiting (ED), Acute Abdominal Pain (ED) Additional Instructions: Bring stool specimens into the laboratory one available; we will check every for Clostridium difficile and other bowel infections. Clear liquid diet for 12 hours. Zofran, one dissolved on the tongue every 4 hours as necessary for nausea. Your blood tests and CT scan of the abdomen and pelvis were normal. Follow-up with your primary care provider. Return here as necessary. Follow Up With: NONE,NONE [Primary Care Provider] - (Instructions as above. Return as necessary. Follow-up with your primary care provider.)
== END 2017-04-01 23:37 | disposition home or self-care (01) ==
LOC: ER 21:07
DX: K52.9 Noninfective gastroenteritis and colitis, unspecified (principal); R10.33 Periumbilical pain; R11.2 Nausea with vomiting, unspecified
CPT/HCPCS: 74177; 80053; 82150; 83690; 85025; 86140; 96361; 96374; 99283; J2405; J7030

== ENCOUNTER 2017-04-24 18:05 | Emergency (ER) | payer SELFPAY ==
[2017-04-24 19:05] LABS: BASOPHILS # (AUTO) 0.04 10*3/UL; BASOPHILS % (AUTO) 0.4 % (0-1); EOSINOPHILS # (AUTO) 0.08 10*3/UL; EOSINOPHILS % (AUTO) 0.9 % (0-8); HEMATOCRIT 46.9 % (42.0-52.0); LYMPHOCYTES # (AUTO) 3.32 10*3/uL; MEAN CORPUSCULAR HEMOGLOBIN 30.7 PG (27-31); MEAN CORPUSCULAR HGB CONC 36.2 g/dL (33-37); MEAN CORPUSCULAR VOLUME 84.8 FL (80-90); MEAN PLATELET VOLUME 9.8 FL (7.4-12.2); MONOCYTES # (AUTO) 0.56 10*3/UL (0.3-0.8); MONOCYTES % (AUTO) 6.1 % (5-15); NEUTROPHILS # (AUTO) 5.13 10*3/UL; NEUTROPHILS % (AUTO) 56.2 % (50-80); RED BLOOD COUNT 5.53 10^6/uL (4.70-6.10)
[2017-04-24 19:06] LABS: PLATELET MORPHOLOGY COMMENT NORMAL MORPHOLOGY (NORM); RBC MORPHOLOGY COMMENT NORMAL MORPHOLOGY (NORM); WBC MORPHOLOGY COMMENT NORMAL MORPHOLOGY (NORM)
[2017-04-24 19:07] LABS: BILIRUBIN,URINE NEGATIVE (NEG); CLARITY,URINE CLEAR (CLEAR); COLOR,URINE YELLOW; GLUCOSE, URINE (UA) NEGATIVE (NEG); NITRATE,URINE NEGATIVE (NEG); OCCULT BLOOD,URINE NEGATIVE (NEG); PROTEIN,URINE NEGATIVE (NEG); URINE SAMPLE TYPE VOIDED SPECIMEN; UROBILINOGEN,URINE 0.2 mg/dL (0.2)
[2017-04-24 19:08] LABS: URINE SAMPLE TYPE VOIDED SPECIMEN; URINE SPECIFIC GRAVITY - MAN 1.005
[2017-04-24 19:15] LABS: AMPHETAMINE SCREEN NEGATIVE (NEG); CANNABINOID SCREEN,URINE NEGATIVE (NEG); COCAINE SCREEN NEGATIVE (NEG); METHADONE URINE SCREEN NEGATIVE (NEG); METHAMPHETAMINES SCREEN,URINE NEGATIVE (NEG); OPIATE SCREEN,URINE NEGATIVE (NEG)
[2017-04-24 19:21] LABS: BLOOD UREA NITROGEN 8 mg/dL (7-22); BUN/CREATININE RATIO 8.88 (6-20); CALCIUM 8.6 mg/dL (8.7-10.7); EST GLOMERULAR FILTRATION > 60 (>60 ml/min/1.73m(2)); SERUM ALBUMIN 4.4 g/dL (3.5-4.8)
[2017-04-24 19:41] VITALS: TEMP 97.5
[2017-04-24] MEDS ORDERED: HYDROmorphone 2 MG/1 ML IVP ONE (20:10)
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
--- NOTE | 2017-04-24 21:20 | DI ---
XR L-SPINE 2-3 VW,04/24/2017 6:45 PM: Clinical History: Trauma Previous Exam: None at this facility. Findings: AP and lateral views of the lumbar spine are obtained, and demonstrate anatomic alignment without fra ctures. Vertebral body height is preserved. Intervertebral disc height is also preserved. A nonobstru ctive bowel gas pattern is seen. No pathologic calcifications are noted. Impression: No fracture.
--- NOTE | 2017-04-24 21:22 | DI ---
CT LUMBAR SPINE W/O CONTRAST,04/24/2017 6:43 PM: Clinical History: Trauma Previous Exam: None at this facility. Findings: Multiple helically acquired CT images are obtained through the lumbar spine without contrast, and dem onstrate mild diffuse degenerative changes of the posterior articulating facets. Vertebral body heigh t is preserved. Intervertebral disc height is also preserved. The paravertebral soft tissues are unre markable. Impression: Normal lumbar spine.
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
[2017-04-24] MEDS ORDERED: predniSONE Tab 20 MG TAB PO ONE (22:11)
[2017-04-24] MEDS ORDERED: HYDROcodone-APAP 10 MG-325 MG TABLET PO PRN (22:12)
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
[2017-04-24 23:18] VITALS: RESP 16
== END 2017-04-24 22:43 | disposition home or self-care (01) ==
LOC: ER 18:05
DX: M54.5 Low back pain (principal); R20.0 Anesthesia of skin; M62.81 Muscle weakness (generalized); W17.89XA Other fall from one level to another, initial encounter; Y92.828 Other wilderness area as the place of occurrence of the external cause
CPT/HCPCS: 72070; 72100; 72128; 72131; 80053; 80305; 80320; 81001; 85025; 96374; 99283 ×2; J7512; J1170

== ENCOUNTER 2017-04-30 23:02 | Emergency (ER) | payer SELFPAY ==
[2017-04-30] MEDS ORDERED: NORMAL SALINE 10 ML SYRINGE FLUSH IVP PRN (23:45)
[2017-04-30] MEDS: Sodium Chloride 0.9% 1,000 ML PRIMARY IV ONE (23:52)
[2017-04-30] MEDS ORDERED: LORazepam 2 MG/1 ML VIAL ONE (23:52)
[2017-04-30] MEDS: LORazepam 2 MG/1 ML VIAL IVP ONE (23:53)
[2017-05-01 00:02] LABS: HEMATOCRIT 49.5 % (42.0-52.0); HEMOGLOBIN 18.2 g/dL (14.0-18.0); MEAN CORPUSCULAR HEMOGLOBIN 30.9 PG (27-31); MEAN CORPUSCULAR HGB CONC 36.8 g/dL (33-37); MEAN PLATELET VOLUME 9.3 FL (7.4-12.2); RED BLOOD COUNT 5.89 10^6/uL (4.70-6.10)
[2017-05-01 00:03] LABS: PLATELET MORPHOLOGY COMMENT NORMAL MORPHOLOGY (NORM); RBC MORPHOLOGY COMMENT NORMAL MORPHOLOGY (NORM); WBC MORPHOLOGY COMMENT SEE COMMENTS (NORM)
[2017-05-01 00:04] LABS: BAND NEUTROPHILS % 0 % (0-10); BASOPHILS % (MANUAL) 0 % (0-1); BLOOD UREA NITROGEN 11 mg/dL (7-22); BUN/CREATININE RATIO 13.75 (6-20); CALCIUM 9.8 mg/dL (8.7-10.7); EOSINOPHILS % (MANUAL) 0 % (0-8); EST GLOMERULAR FILTRATION > 60 (>60 ml/min/1.73m(2)); LYMPHOCYTES % (MANUAL) 37 % (10-50); MONOCYTES % (MANUAL) 10 % (0-12); NEUTROPHILS % (MANUAL) 53 % (50-80); SERUM ALBUMIN 4.5 g/dL (3.5-4.8)
[2017-05-01 00:05] LABS: SALICYLATE < 1.0 mg/dl (0-20)
[2017-05-01] MEDS ORDERED: HALOPERIDOL LACTATE 5 MG/1 ML AMPULE ONE (00:26)
[2017-05-01] MEDS ORDERED: diphenhydrAMINE 50 MG/1 ML VIAL ONE (00:27)
[2017-05-01] MEDS ORDERED: LORazepam 2 MG/1 ML VIAL ONE (00:27)
[2017-05-01] MEDS ORDERED: Sodium Chloride 0.9% 1,000 ML ONE (00:27)
[2017-05-01] MEDS ORDERED: diphenhydrAMINE 50 MG/1 ML VIAL IVP ONE (00:32)
[2017-05-01] MEDS ORDERED: HALOPERIDOL LACTATE 5 MG/1 ML AMPULE IVP ONE (00:32)
[2017-05-01] MEDS: Sodium Chloride 0.9% 1,000 ML PRIMARY IV ONE (00:40)
[2017-05-01] MEDS: LORazepam 2 MG/1 ML VIAL IVP ONE (00:43)
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
[2017-05-01 02:22] LABS: BILIRUBIN,URINE NEGATIVE (NEG); CLARITY,URINE CLEAR (CLEAR); COLOR,URINE YELLOW; GLUCOSE, URINE (UA) NEGATIVE (NEG); NITRATE,URINE NEGATIVE (NEG); OCCULT BLOOD,URINE NEGATIVE (NEG); PH,URINE 6.5 (5.0-8.5); PROTEIN,URINE NEGATIVE (NEG); UROBILINOGEN,URINE 0.2 EU/dL (0.2)
[2017-05-01 02:30] LABS: AMPHETAMINE SCREEN NEGATIVE (NEG); CANNABINOID SCREEN,URINE POSITIVE (NEG); COCAINE SCREEN NEGATIVE (NEG); METHADONE URINE SCREEN NEGATIVE (NEG); METHAMPHETAMINES SCREEN,URINE NEGATIVE (NEG); OPIATE SCREEN,URINE NEGATIVE (NEG); URINE SAMPLE TYPE CLEAN CATCH URINE; URINE SPECIFIC GRAVITY - MAN 1.003
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
[2017-05-01 11:11] VITALS: RESP 16; TEMP 97.9
== END 2017-05-01 10:42 ==
LOC: ER 23:02
DX: R45.851 Suicidal ideations (principal); K70.10 Alcoholic hepatitis without ascites; F10.10 Alcohol abuse, uncomplicated
CPT/HCPCS: 36415; 70450; 80053; 80305; 80320; 80329 ×2; 81003; 84443; 85007; 90791 ×2; 96361; 96374; 96375; 96376; 99283 ×2; J1200; J1630; J2060; J7030

== ENCOUNTER 2017-06-22 00:29 | Emergency (ER) | payer SELFPAY ==
[2017-06-22] MEDS ORDERED: NORMAL SALINE 10 ML SYRINGE FLUSH IVP PRN (00:46)
[2017-06-22 01:08] LABS: BASOPHILS # (AUTO) 0.14 10*3/UL; BASOPHILS % (AUTO) 1.7 % (0-1); EOSINOPHILS # (AUTO) 0.05 10*3/UL; EOSINOPHILS % (AUTO) 0.6 % (0-8); HEMATOCRIT 45.7 % (42.0-52.0); HEMOGLOBIN 16.9 g/dL (14.0-18.0); LYMPHOCYTES # (AUTO) 3.71 10*3/uL; MEAN CORPUSCULAR HEMOGLOBIN 30.8 PG (27-31); MEAN CORPUSCULAR VOLUME 83.4 FL (80-90); MEAN PLATELET VOLUME 9.5 FL (7.4-12.2); MONOCYTES # (AUTO) 0.61 10*3/UL (0.3-0.8); MONOCYTES % (AUTO) 7.2 % (5-15); NEUTROPHILS % (AUTO) 46.1 % (50-80); RED BLOOD COUNT 5.48 10^6/uL (4.70-6.10)
[2017-06-22 01:10] LABS: PLATELET MORPHOLOGY COMMENT NORMAL MORPHOLOGY (NORM); RBC MORPHOLOGY COMMENT NORMAL MORPHOLOGY (NORM); WBC MORPHOLOGY COMMENT NORMAL MORPHOLOGY (NORM)
[2017-06-22 01:20] LABS: BLOOD UREA NITROGEN 9 mg/dL (7-22); BUN/CREATININE RATIO 11.25 (6-20); CALCIUM 9.6 mg/dL (8.7-10.7); EST GLOMERULAR FILTRATION > 60 (>60 ml/min/1.73m(2)); SERUM ALBUMIN 4.9 g/dL (3.5-4.8)
[2017-06-22 01:21] LABS: SALICYLATE < 1.0 mg/dl (0-20)
[2017-06-22 01:36] VITALS: RESP 16; TEMP 98.3
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
== END 2017-06-22 02:20 | disposition home or self-care (01) ==
LOC: ER 00:29
DX: R45.851 Suicidal ideations (principal); F10.129 Alcohol abuse with intoxication, unspecified
CPT/HCPCS: 36000; 80053; 80320; 80329; 84443; 85025; 99283